=== PATIENT | male | born 1970 | race Caucasian/White ===

== ENCOUNTER → 2017-06-15 | Outpatient (CLI) | payer OTHER | LOC: BMCIMAGING 13:55 | PROVIDERS: ATTEND Emergency Medicine | DX: M25.462 Effusion, left knee (principal) ==

== ENCOUNTER → 2018-09-04 | Outpatient (CLI) | payer MEDICAID | LOC: FIMAGING 08:24 | PROVIDERS: ATTEND Clinical Nurse Specialist Adult Health | DX: R19.02 Left upper quadrant abdominal swelling, mass and lump (principal) ==